=== PATIENT | female | born 1990 | race Hispanic/Latino ===

== ENCOUNTER 2021-12-02 23:02 | Emergency (ER) | payer MEDICAID ==
[~2021-12-02] VITALS: Ht 152.4 cm; Wt 81.6 kg
[2021-12-02 23:04] VITALS: BP 112/68
[2021-12-03] MEDS ORDERED: IBUP-2070 PO (00:20)
[2021-12-03] MEDS ORDERED: ACET-2079 PO (00:20)
[2021-12-03] MEDS ORDERED: HYDROCODONE/ACETAMINOPHEN 10/325 MG TAB PO ONE (00:30)
[2021-12-03] MEDS ORDERED: IBUPROFEN 600 MG TABLET PO ONE (00:30)
== END 2021-12-03 00:40 | disposition home or self-care (01) ==
LOC: EDH 23:02
DX: S93.401A Sprain of unspecified ligament of right ankle, initial encounter (principal); X50.1XXA Overexertion from prolonged static or awkward postures, initial encounter; Y93.89 Activity, other specified; Y92.89 Other specified places as the place of occurrence of the external cause; Y99.8 Other external cause status
CPT/HCPCS: 73610